=== PATIENT | male | born 1990 | race African-American/Black ===

== ENCOUNTER 2017-04-02 17:09 | Emergency (ER) | payer SELFPAY ==
[~2017-04-02] VITALS: Ht 177.8 cm; Wt 88.0 kg
[2017-04-02 18:10] VITALS: BP 118/69
== END 2017-04-02 19:40 | disposition left against medical advice (07) ==
LOC: ER 19:39
DX: R53.1 Weakness (principal); Z53.21 Procedure and treatment not carried out due to patient leaving prior to being seen by health care provider